=== PATIENT | female | born 1990 | race Caucasian/White ===

== ENCOUNTER 2017-03-26 20:25 | Emergency (ER) | payer BC ==
[2017-03-26 20:34] VITALS: BP 131/80
--- NOTE | 2017-03-26 20:47 | EDM.PDOC ---
ED HPI GENERAL MEDICAL PROBLEM - General Chief Complaint: Laceration Stated Complaint: RIGHT POINTER FINGER TIP CUT OFF Time Seen by Provider: 03/26/17 20:46 Source of Information: Reports: Patient History Limitations: Reports: No Limitations - History of Present Illness INITIAL COMMENTS - FREE TEXT/NARRATIVE: 26-year-old female attends the ED after suffering an acute injury to the distal ulnar aspect of her right index finger. Patient states she slipped with a very sharp knifelike cutting lettuce and suffered an avulsion injury but does involve the anterior aspect of the nail as well as the ulnar aspect of the tip of the finger. Tetanus toxoid is up to date. Injury occurred within the last hour. She is left-hand dominant. Onset: Today Onset Date: 03/26/17 Onset Time: 20:05 Duration: Minutes: Location: Reports: Upper Extremity, Right (Right distal index finger) Quality: Reports: Ache, Burning, Stabbing Severity: Moderate Improves with: Reports: None Worsens with: Reports: None Context: Reports: Trauma. 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) Right Hand Pain Score (Numeric/FACES): 6 - Related Data Allergies Allergy/AdvReac Type Severity Reaction Status Date / Time Latex, Natural Rubber Allergy Rash Verified 03/26/17 20:31 nickel Allergy Rash Verified 03/26/17 20:31 amitriptyline AdvReac Hallucinati Verified 03/26/17 20:31 ons nortriptyline [Nortriptyline] AdvReac Hallucinati Verified 03/26/17 20:31 ons nut - unspecified [nut] AdvReac Stomach Verified 03/26/17 20:31 Ache topiramate [From Topamax] AdvReac Hallucinati Verified 03/26/17 20:31 ons Home Meds: Home Meds Levothyroxine 25 mcg PO QPM 04/05/15 [History] Prenat Vit Comb.10/Iron/Fa/Dha [Vitafol-OB + DHA] 1 each PO DAILY 09/28/16 [ History] Albuterol Sulfate [Proair Hfa] 8.5 gm IH Q4HR PRN 10/28/16 [History] Acetaminophen [Tylenol] 650 mg PO Q4H PRN #30 tablet 10/30/16 [Rx] Ibuprofen [IJD: Ibuprofen] 600 mg PO Q4H PRN #30 tablet 10/30/16 [Rx] Past Medical History HEENT History: Reports: Impaired Vision Other HEENT History: Wears glasses Respiratory History: Reports: SOB Other Respiratory History: sensitivity to cold and smoke. 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 , , Other (See Below) Other OB/BYN History: Ooprectomy Musculoskeletal History: Reports: Back Pain, Chronic, Fibromyalgia, RA Neurological History: Reports: Migraines Psychiatric History: Reports: Anxiety, Depression Endocrine/Metabolic History: Reports: Hypothyroidism Hematologic History: Reports: Idiopathic Thrombocytopenia, Iron Deficiency Other Hematologic History: received iron infusions during Immunologic History: Reports: Immunosuppression Other Immunologic History: on steroids prior to admission, autoimmune disease Dermatologic History: Reports: Other (See Below) Other Dermatologic History: sensitive to multiple foods "rash" - Past Surgical History Female Surgical History: Reports: Section Social & Family History - Family History Family Medical History: Noncontributory - Tobacco Use Smoking Status *Q: Never Smoker Second Hand Smoke Exposure: No - Alcohol Use Days Per Week of Alcohol Use: 0 - Recreational Drug Use Recreational Drug Use: No Drug Use in Last 12 Months: No - Living Situation & Occupation Living situation: Reports: Occupation: Employed ED ROS GENERAL - Review of Systems Review Of Systems: See Below Constitutional: Reports: No Symptoms HEENT: Reports: No Symptoms Respiratory: Reports: No Symptoms Cardiovascular: Reports: No Symptoms Endocrine: Reports: No Symptoms GI/Abdominal: Reports: No Symptoms : Reports: No Symptoms Musculoskeletal: Reports: No Symptoms Skin: Reports: No Symptoms Neurological: Reports: No Symptoms Psychiatric: Reports: No Symptoms Hematologic/Lymphatic: Reports: Other (Intermittent problems with low platelets. Platelet count was only 50,000 before delivery and she required platelet transfusion. Last clinic and was 123,000.) Immunologic: Reports: No Symptoms ED EXAM, SKIN/RASH Exam: See Below Exam Limited By: No Limitations General Appearance: Alert, WD/WN, No Apparent Distress Extremities: Other (Examination was limited to the tip of the right index finger. Patient has suffered a avulsion injury to the tip of the finger involving the distal 20% of the fingernail. Approximately 6 mm of tissue have been avulsed circumferentially. No active bleeding.) Neurological: Alert, Oriented, CN II-XII Intact, Normal Cognition Course - Vital Signs Last Recorded V/S: Last Vital Signs Temp 36.1 C 03/26/17 20:32 Pulse 76 03/26/17 20:32 Resp 16 03/26/17 20:32 BP 131/80 03/26/17 20:32 Pulse Ox 100 03/26/17 20:32 - Radiology Interpretation Free Text/Narrative:: 26-year-old female attends the ED for assessment of a avulsion injury to the distal aspect of her right index finger. This occurred at home with an accident when she slipped with the knife. It does involve the nail with about 20% of the corner of the nail removed and 5-6 mm circumferential piece of skin which is full-thickness loss. Not enough to require skin grafting. There is no active bleeding. The wound will have to heal by primary intention. Wound was cleansed topical antibiotic placed Telfa pad and finger cot dressing for 2 days. She'll then cleansed the area daily with soap and water and apply topical antibiotic and cover with bandages to keep clean. Advised wound will take around 3 weeks to granulatie in completely. Departure - Departure Time of Disposition: 20:46 Disposition: Home, Self-Care 01 Condition: Fair Clinical Impression: Avulsion of skin of finger Qualifiers: Encounter type: initial encounter Qualified Code(s): S61.209A - Unspecified open wound of unspecified finger without damage to nail, initial encounter - Discharge Information Referrals: Mary Whitten PA [Primary Care Provider] - Forms: ED Department Discharge
== END 2017-03-26 21:10 | disposition home or self-care (01) ==
LOC: JD.ED 20:25
DX: S61.300A Unspecified open wound of right index finger with damage to nail, initial encounter (principal); F41.9 Anxiety disorder, unspecified; F32.9 Major depressive disorder, single episode, unspecified; E03.9 Hypothyroidism, unspecified; Z98.890 Other specified postprocedural states; Z79.899 Other long term (current) drug therapy; Z88.8 Allergy status to other drugs, medicaments and biological substances; Z91.040 Latex allergy status; Z91.048 Other nonmedicinal substance allergy status; W26.0XXA Contact with knife, initial encounter
CPT/HCPCS: 99282; 99283

== ENCOUNTER 2019-08-22 01:38 | Inpatient (IN) | payer BC ==
[~2019-08-22 01:38] MED LIST: Bupivacaine 0.25% 10 ML SDV ONE
[2019-08-22] MEDS ORDERED: Nalbuphine 10 MG/1 ML Vial IVPUSH PRN (02:20)
[2019-08-22] MEDS ORDERED: Sodium Chloride 0.9% 10 ML Syringe FLUSH PRN (02:20)
[2019-08-22] MEDS ORDERED: Ondansetron 4 MG/2 ML SDV IVPUSH PRN (02:20)
[2019-08-22] MEDS ORDERED: Oxytocin/Lactated Ringers 10 UNIT/1,000 ML BAG IV SCH (02:30)
[2019-08-22] MEDS ORDERED: Sodium Chloride 0.9% 500 ML ONE (05:55)
--- NOTE | 2019-08-22 08:01 | PCM.LDHP ---
L&D History of Present Illness - General Date of Service: 08/22/19 Admit Problem/Dx: Patient Status Order with Admit Dx/Problem 08/22/19 05:00 Patient Status [ADT] Routine Admission Diagnosis/Problem Admission Diagnosis/Problem 08/22/19 07:44 Eva is a 29-year-old 5 para 2021 white female who is admitted for medical induction of labor for diagnosis of thrombocytopenia. Patient has had moderately decreased platelets in the range of 90-100,000. Because of the anesthesia requirements 100,000 platelets prior to any epidural or spinal analgesia decision was made to induce labor after infusion of platelets. Source of Information: Patient History Limitations: Reports: No Limitations - History of Present Illness Introduction:: Eva is a 29-year-old 5 para 2021 white female who is admitted for medical induction of labor for diagnosis of thrombocytopenia. Patient has had moderately decreased platelets in the range of 90-100,000. Because of the anesthesia requirements 100,000 platelets prior to any epidural or spinal analgesia decision was made to induce labor after infusion of platelets.She has had 4 days of prednisone on 20 mg per day in an attempt to increase platelet count. This has failed to increase platelets significantly. The procedure of platelet transfusion followed by induction of labor especially in light of her being a trial of labor after section candidate for vaginal after section, its risks, benefits and alternatives including repeat section and all discussed in detail patient. Precautionary efforts including preoperative labs, continuous monitoring, signing of consents for and vaginal after section are all discussed with patient and will be implemented. 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 with this delivery also. She has had 1 tubal and 1 miscarriage also. Her menarche was at 11 years of age. Cycles every 28 days. Her STEFANIE of 08/28/2019 is determined by her certain LMP of 11/21/2018. This supported by 2 ultrasounds done at 7 weeks and again at 19 weeks. Her previous obstetric history includes the followin. Female born 08/26/2011 at 38 weeks gestational age6 lbs. [facility] [place] Child's name is Jigar. 2. Ectopic 09/26/2011 at 8 weeks gestational age 3. Spontaneous miscarriage 1016 weeks gestational age. 4. Male born 10/29/2017. 38 weeks and 6 days. 7 lbs. 13 oz.-Vaginal after sectionepidural used. Patient had gestational thrombocytopenia with that , and platelet transfusion prior to induction of labor with that delivery. course: Patient was seen early in the at approximately 7 weeks gestational age. She has had appropriate fundal height growth. Vital signs and stable throughout the course. Her weight is increased from 183.6 pounds to 205.6 pounds. Patient is group B strep negative. She was identified with thrombocytopenia which is mild at first visit but has slowly become more significant throughout the . Her blood count has been followed on a regular basis. She has had some history of anxiety. Also history of asthma and rheumatoid arthritis. She declined genetic testing with this . She has been on sertraline 50 mg per day during the course of the . She has a right ovarian dermoid cyst which on last evaluation is 4.1 cm in size. She has a history of fibromyalgia. She is hypothyroid and is on thyroid replacement levothyroxine. Anemia during and has been on iron replacement. Laboratory testing and : Blood is A+ with a negative and by screen. Hemoglobin at first visit was 11.4 g/dL and platelets are 131,000. She is rubella immune. Urine culture was negative. Hepatitis B surface antigen and HIV assays were both negative. TSH on 02/08/2019 was normal at 1.217 mU/L. Second trimester laboratory testing showed a hemoglobin of 11.2 g/dL which time she was started on iron replacement therapy. Late was were 134,000. Diabetic screen was 131. Her 3 hour glucose tolerance test was normal with values of 82 mg/dL fasting, 116 mg/dL 1 hour, 127 mg/dL at 2 hours and 109 g/dL at 3 hours. Repeat laboratory testing on 06/01/2019 showed a hemoglobin of 11.8 g/dL and platelets of 115,000. At that time. RPR was nonreactive. Group B strep screen is negative. Platelet count as of last week was 90,000 having been 93,000 the week before. Patient has had no bleeding abnormalities during the course of . Allergies: 1. Nortriptyline 2. Topamax 3. Amitriptyline 4. Adhesive tape 5. Latex Medications: 1. vitamins daily 2. Patient has been on sertraline during the course of at 50 mg per day 3. Ventolin inhaler when necessary as rescue. 4. Levothyroxine sodium 75 g daily 5. Iron inform ferrous sulfate 325 mg per day Past medical history: 1. Mucoid arthritis 2. History of migraine headaches 3. History of anxiety and depression on meds during this 4. Hypothyroidism on replacement meds 5. History of a station of thrombocytopenia 6. Dermoid cyst right ovary4.1 cm in size. 7 Multiple allergies Past surgical history: 1. section 2. Tonsillectomy 2006 3. Laparoscopy 21 for ectopic and 1 done for diagnostic reasons. Family history: Father with type 2 diabetes. Mother is alive with osteoarthritis and asthma. Father also has osteoarthritis and hypertension. One brother is alive with asthma history. One sister with lupus. Other autoimmune problems also noted in the sister. No bleeding, clotting, platelet abnormalities or problems noted in the family otherwise. Social history: Patient is . 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 She [facility]. She is a high school graduate. Her is Jimmy Gr. She does not use any significant loss of alcohol, drugs or tobacco. Review of systems: In general patient has no complaints. Specifically has no bleeding abnormalities noted. Skin: Negative Lungs: No infectious symptoms or shortness of breath Cardiovascular: No chest pain or exercise intolerance Breasts: No lumps, changes in size, pain, dimpling, discharge or axillary or supraclavicular concerns. Dissociated are noted GI: Negative : Changes associated with Musculoskeletal: Negative Neurological: Negative In general the patient is well-developed, well-nourished, pleasant female of stated age in no acute distress. Patient is anxious concerning plans for induction today. Skin is warm dry without lesions. HEENT, neck and back within normal limits. Lungs are clear with good breath sounds in all lung zhao. Cardiovascular exam shows regular and rhythm without murmurs. Breast exam is deferred having been done at first visit and found to be normal is not repeated at this time. Abdomen is gravid with fundal height on last evaluation clinic at 39 cm. Baby in vertex presentation.. Genital per digital exam on last evaluation clinic 2+ centimeters, 50% effaced, soft, posterior, cephalic presentation.. Extremities and neurological exam are grossly within normal limits. - Related Data Allergies/Adverse Reactions: Allergies Allergy/AdvReac Type Severity Reaction Status Date / Time Latex, Natural Rubber Allergy Rash Verified 08/22/19 08:02 nickel Allergy Rash Verified 08/22/19 08:02 amitriptyline AdvReac Hallucinati Verified 08/22/19 08:02 ons nortriptyline [Nortriptyline] AdvReac Hallucinati Verified 08/22/19 08:02 ons nut - unspecified [nut] AdvReac Stomach Verified 08/22/19 08:02 Ache topiramate [From Topamax] AdvReac Hallucinati Verified 08/22/19 08:02 ons tape Allergy Itching Uncoded 08/22/19 08:02 Home Medications: Home Meds Levothyroxine 75 mcg PO DAILY 04/05/15 [History] Vit 10/Iron/Folic/Dha [Vitafol-OB + DHA] 1 each PO DAILY 09/28/16 [ History] Albuterol Sulfate [Proair Hfa] 8.5 gm IH Q4HR PRN 10/28/16 [History] Ferrous Sulfate [Iron] 325 mg PO TID 08/22/19 [History] Past Medical History HEENT History: Reports: Impaired Vision Other HEENT History: Wears glasses Respiratory History: Reports: SOB Other Respiratory History: sensitivity to cold and smoke. 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 , , Other (See Below) Other OB/BYN History: Ooprectomy Musculoskeletal History: Reports: Back Pain, Chronic, Fibromyalgia, RA Neurological History: Reports: Migraines Psychiatric History: Reports: Anxiety, Depression Endocrine/Metabolic History: Reports: Hypothyroidism Hematologic History: Reports: Idiopathic Thrombocytopenia, Iron Deficiency Other Hematologic History: received iron infusions during Immunologic History: Reports: Immunosuppression Other Immunologic History: on steroids prior to admission, autoimmune disease Dermatologic History: Reports: Other (See Below) Other Dermatologic History: sensitive to multiple foods "rash" - Past Surgical History Female Surgical History: Reports: Section Social & Family History - Family History Family Medical History: Noncontributory - Living Situation & Occupation Living situation: Reports: Occupation: Employed H&P Review of Systems - Review of Systems: Review Of Systems: See Below L&D Exam - Exam Exam: See Below - Patient Data Lab Results Last 24 hrs: Laboratory Results - last 24 hr 08/22/19 08/22/19 Range/Units 05:34 05:34 WBC 6.10 (3.98-10.04) K/mm3 RBC 4.09 (3.98-5.22) M/mm3 Hgb 12.5 (11.2-15.7) gm/dl Hct 37.1 (34.1-44.9) % MCV 90.7 (79.4-94.8) fl MCH 30.6 (25.6-32.2) pg MCHC 33.7 (32.2-35.5) g/dl RDW Std Deviation 43.2 (36.4-46.3) fL Plt Count 93 L (182-369) K/mm3 MPV 12.1 (9.4-12.3) fl Neut % (Auto) 64.7 (34.0-71.1) % Lymph % (Auto) 25.6 (19.3-51.7) % Pitt % (Auto) 8.7 (4.7-12.5) % Eos % (Auto) 0.5 L (0.7-5.8) Baso % (Auto) 0.2 (0.1-1.2) % Neut # (Auto) 3.95 (1.56-6.13) K/mm3 Lymph # (Auto) 1.56 (1.18-3.74) K/mm3 Pitt # (Auto) 0.53 H (0.24-0.36) K/mm3 Eos # (Auto) 0.03 L (0.04-0.36) K/mm3 Baso # (Auto) 0.01 (0.01-0.08) K/mm3 Manual Slide Review Abnormal smear Sodium 140 (136-145) mEq/L Potassium 3.5 (3.5-5.1) mEq/L Chloride 105 (98-107) mEq/L Carbon Dioxide 24 (21-32) mEq/L Anion Gap 14.5 (5-15) BUN 10 (7-18) mg/dL Creatinine 0.7 (0.55-1.02) mg/dL Est Cr Clr Drug Dosing TNP Estimated GFR (MDRD) > 60 (>60) mL/min BUN/Creatinine Ratio 14.3 (14-18) Glucose 109 H (74-106) mg/dL Calcium 8.6 (8.5-10.1) mg/dL Total Bilirubin 0.2 (0.2-1.0) mg/dL AST 13 L (15-37) U/L ALT 11 L (14-59) U/L Alkaline Phosphatase 101 (46-116) U/L Total Protein 6.3 L (6.4-8.2) g/dl Albumin 2.6 L (3.4-5.0) g/dl Globulin 3.7 gm/dL Albumin/Globulin Ratio 0.7 L (1-2) Result Diagrams: 08/22/19 10:00 08/22/19 05:34 Problem List Initiated/Reviewed/Updated: Yes Orders Last 24hrs: Active Orders 24 hr Category Date Time Status Patient Status [ADT] Routine ADT 08/22/19 05:00 Active Activity as Tolerated [RC] PFP Care 08/22/19 02:20 Active Communication Order [RC] ASDIRECTED Care 08/22/19 02:20 Active Heart Tones [RC] ASDIRECTED Care 08/22/19 02:21 Active Non Stress Test [RC] PER UNIT ROUTINE Care 08/22/19 05:00 Active Notify Provider [RC] PFP Care 08/22/19 02:20 Active Notify Provider [RC] PRN Care 08/22/19 02:20 Active Peripheral IV Care [RC] . DIRECTED Care 08/22/19 02:21 Active Pump Management, Intrathecal [RC] ASDIRECTED Care 08/22/19 05:00 Active Vital Signs [RC] PER UNIT ROUTINE Care 08/22/19 02:20 Active Regular Diet [DIET] Diet 08/22/19 Breakfast Active CORTISOL [REF] Routine Lab 08/22/19 05:34 Received RAPID PLASMA REAGIN,RPR [CHEM] Routine Lab 08/22/19 05:34 Received Lactated Ringers [Ringers, Lactated] 1,000 ml Med 08/22/19 02:30 Active IV ASDIRECTED Nalbuphine [Nubain] Med 08/22/19 02:20 Active 10 mg IVPUSH Q2H PRN Ondansetron [Zofran] Med 08/22/19 02:20 Active 4 mg IVPUSH Q4H PRN Oxytocin/Lactated Ringers [Pitocin in LR 10 Units/1,000 Med 08/22/19 02:30 Active ML] 10 unit in 1,000 ml IV TITRATE Sodium Chloride 0.9% [Saline Flush] Med 08/22/19 02:20 Active 10 ml FLUSH ASDIRECTED PRN Electronic Heart Tones Ext w TOCO [WOMSER] Oth 08/22/19 02:20 Ordered Routine Electronic Heart Tones Internal [WOMSER] Per Unit Oth 08/22/19 02:20 Ordered Routine Peripheral IV Insertion Adult [OM.PC] Routine Oth 08/22/19 02:20 Ordered Resuscitation Status Routine Resus Stat 08/22/19 02:20 Ordered Medication Orders Lactated Ringer's (Ringers, Lactated) 1,000 mls @ 100 mls/hr IV ASDIRECTED SPIKE Oxytocin/Lactated Ringer's (Pitocin In Lr 10 Units/1,000 Ml) 10 unit in 1,000 mls @ 12 mls/hr IV TITRATE SPIKE; Protocol Nalbuphine HCl (Nubain) 10 mg IVPUSH Q2H PRN PRN Reason: Pain Ondansetron HCl (Zofran) 4 mg IVPUSH Q4H PRN PRN Reason: Nausea/Vomiting Sodium Chloride (Saline Flush) 10 ml FLUSH ASDIRECTED PRN PRN Reason: Keep Vein Open Assessment/Plan Comment:: 1. 39-1/7 week intrauterine , history of moderate thrombocytopenia with platelet count at 90,000. Admitted for medical induction of labor. 2.Group B strep screen negative. 3. History of with first with successful with second . 4. History of gestational thrombocytopenia with last treated with platelet transfusion and induction of labor with successful outcome 5. Dermoid cyst right ovary4.1 cm in diameter 6. Patient plans to breast-feed. 7. Patient desire an epidural in labor 8. History of anxiety and depression in 9. History of asthmahas been mild during 10. History of anemia in on iron replacement therapy with good results. 11. Hypothyroidism on replacement. Plan: 1. Precautionary orders given for protocol including consents for C- section and , labs, continuous monitoring, IV access, informing anesthesia and surgery that candidate is in labor and delivery. 2. We will transfuse 2 units of platelets in an attempt to bring platelet count above 100,000 so patient can have an for analgesia in labor. Will recheck platelets after infusion 3. RPR per protocol 4. We'll obtain cortisols level as patient has been on prednisone for the last 4 days. Below the threshold of adequacy will support the labor with IV hydrocortisone as indicated. 5. Continuous monitoring 6. Pitocin/artificial rupture membranes induction. 7. Will manage right ovarian dermoid cyst after delivery 8. Continue levothyroxine per patient's present dosage.
[2019-08-22] MEDS ORDERED: diphenhydrAMINE 50 MG/ML SDV IVPUSH PRN (10:59)
[2019-08-22] MEDS ORDERED: ePHEDrine 50 MG/ML SDV IVPUSH PRN (10:59)
[2019-08-22] MEDS ORDERED: fentaNYL/Bupivacaine/NS 2 MCG-0.125% 250 ML EPIDUR PRN (10:59)
[2019-08-22] MEDS ORDERED: fentaNYL 100 MCG/2 ML SDV EPIDUR PRN (10:59)
[2019-08-22] MEDS ORDERED: Albuterol 6.7 GM Inhaler INH PRN (12:59)
[2019-08-22] MEDS ORDERED: Hydrocortisone Sodium Succinate 100 MG/2 ML SDV IVPUSH ONE (13:15)
[2019-08-22] MEDS ORDERED: Acetaminophen 325 MG Tab PO PRN (13:24)
[2019-08-22] MEDS: Lactated Ringers 1,000 ML IV SCH ×3 (13:24→15:27)
--- NOTE | 2019-08-22 14:41 | PCM.PREANE ---
Preanesthetic Assessment - Procedure Proposed Procedure: Epidural - Anesthesia/Transfusion/Family Hx Anesthesia History: Prior Anesthesia Without Reaction Family History of Anesthesia Reaction: No Transfusion History: Prior Transfusion Without Reaction - Review of Systems General: No Symptoms Pulmonary: No Symptoms Cardiovascular: No Symptoms Gastrointestinal: Abdominal Pain (labor) Neurological: No Symptoms Other: Reports: Thyroid Problems (hypothyroid), Anxiety - Physical Assessment Height: 1.65 m Weight: 93.44 kg ASA Class: 2 Mental Status: Alert & Oriented x3 Airway Class: Mallampati = 1 Dentition: Reports: Normal Dentition Thyro-Mental Finger Breadths: 3 Mouth Opening Finger Breadths: 3 ROM/Head Extension: Full Lungs: Clear to Auscultation, Normal Respiratory Effort Cardiovascular: Regular Rate, Regular Rhythm - Lab Values: Laboratory Last Values WBC 5.92 K/mm3 (3.98-10.04) 08/22/19 10:00 RBC 3.80 M/mm3 (3.98-5.22) L 08/22/19 10:00 Hgb 11.6 gm/dl (11.2-15.7) 08/22/19 10:00 Hct 34.6 % (34.1-44.9) 08/22/19 10:00 MCV 91.1 fl (79.4-94.8) 08/22/19 10:00 MCH 30.5 pg (25.6-32.2) 08/22/19 10:00 MCHC 33.5 g/dl (32.2-35.5) 08/22/19 10:00 RDW Std Deviation 43.6 fL (36.4-46.3) 08/22/19 10:00 Plt Count 110 K/mm3 (182-369) L 08/22/19 10:00 MPV 10.8 fl (9.4-12.3) 08/22/19 10:00 Neut % (Auto) 71.9 % (34.0-71.1) H 08/22/19 10:00 Lymph % (Auto) 19.4 % (19.3-51.7) 08/22/19 10:00 Boyle % (Auto) 7.9 % (4.7-12.5) 08/22/19 10:00 Eos % (Auto) 0.3 (0.7-5.8) L 08/22/19 10:00 Baso % (Auto) 0.3 % (0.1-1.2) 08/22/19 10:00 Neut # (Auto) 4.25 K/mm3 (1.56-6.13) 08/22/19 10:00 Lymph # (Auto) 1.15 K/mm3 (1.18-3.74) L 08/22/19 10:00 Boyle # (Auto) 0.47 K/mm3 (0.24-0.36) H 08/22/19 10:00 Eos # (Auto) 0.02 K/mm3 (0.04-0.36) L 08/22/19 10:00 Baso # (Auto) 0.02 K/mm3 (0.01-0.08) 08/22/19 10:00 Manual Slide Review Abnormal smear 08/22/19 05:34 Sodium 140 mEq/L (136-145) 08/22/19 05:34 Potassium 3.5 mEq/L (3.5-5.1) 08/22/19 05:34 Chloride 105 mEq/L (98-107) 08/22/19 05:34 Carbon Dioxide 24 mEq/L (21-32) 08/22/19 05:34 Anion Gap 14.5 (5-15) 08/22/19 05:34 BUN 10 mg/dL (7-18) 08/22/19 05:34 Creatinine 0.7 mg/dL (0.55-1.02) 08/22/19 05:34 Est Cr Clr Drug Dosing TNP 08/22/19 05:34 Estimated GFR (MDRD) > 60 mL/min (>60) 08/22/19 05:34 BUN/Creatinine Ratio 14.3 (14-18) 08/22/19 05:34 Glucose 109 mg/dL (74-106) H 08/22/19 05:34 Calcium 8.6 mg/dL (8.5-10.1) 08/22/19 05:34 Total Bilirubin 0.2 mg/dL (0.2-1.0) 08/22/19 05:34 AST 13 U/L (15-37) L 08/22/19 05:34 ALT 11 U/L (14-59) L 08/22/19 05:34 Alkaline Phosphatase 101 U/L (46-116) 08/22/19 05:34 Total Protein 6.3 g/dl (6.4-8.2) L 08/22/19 05:34 Albumin 2.6 g/dl (3.4-5.0) L 08/22/19 05:34 Globulin 3.7 gm/dL 08/22/19 05:34 Albumin/Globulin Ratio 0.7 (1-2) L 08/22/19 05:34 Blood Type A POSITIVE 08/22/19 05:34 Gel Antibody Screen Negative 08/22/19 05:34 - Allergies Allergies/Adverse Reactions: Allergies Allergy/AdvReac Type Severity Reaction Status Date / Time Latex, Natural Rubber Allergy Rash Verified 08/22/19 08:02 nickel Allergy Rash Verified 08/22/19 08:02 amitriptyline AdvReac Hallucinati Verified 08/22/19 08:02 ons nortriptyline [Nortriptyline] AdvReac Hallucinati Verified 08/22/19 08:02 ons nut - unspecified [nut] AdvReac Stomach Verified 08/22/19 08:02 Ache topiramate [From Topamax] AdvReac Hallucinati Verified 08/22/19 08:02 ons tape Allergy Itching Uncoded 08/22/19 08:02 - Anesthesia Plan Pre-Op Medication Ordered: None - Acknowledgements Anesthesia Type Planned: Epidural Pt an Appropriate Candidate for the Planned Anesthesia: Yes Alternatives and Risks of Anesthesia Discussed w Pt/Guardian: Yes Pt/Guardian Understands and Agrees with Anesthesia Plan: Yes PreAnesthesia Questionnaire HEENT History: Reports: Impaired Vision Other HEENT History: Wears glasses Respiratory History: Reports: SOB Other Respiratory History: sensitivity to cold and smoke. uses inhaler PRN Gastrointestinal History: Reports: GERD, Irritable Bowel Syndrome DOUBLE [employer] GR[employer]ER History: Reports: Ectopic , , Other (See Below) Other OB/BYN History: Ooprectomy Musculoskeletal History: Reports: Back Pain, Chronic, Fibromyalgia, RA Neurological History: Reports: Migraines Psychiatric History: Reports: Anxiety, Depression Endocrine/Metabolic History: Reports: Hypothyroidism Hematologic History: Reports: Idiopathic Thrombocytopenia, Iron Deficiency Other Hematologic History: received iron infusions during Immunologic History: Reports: Immunosuppression Other Immunologic History: on steroids prior to admission, autoimmune disease Dermatologic History: Reports: Other (See Below) Other Dermatologic History: sensitive to multiple foods "rash" - Past Surgical History Female Surgical History: Reports: Section - SUBSTANCE USE Smoking Status *Q: Never Smoker Recreational Drug Use History: No - HOME MEDS Home Medications: Home Meds Levothyroxine 25 mcg PO QPM 04/05/15 [History] Vit 10/Iron/Folic/Dha [Vitafol-OB + DHA] 1 each PO DAILY 09/28/16 [ History] Albuterol Sulfate [Proair Hfa] 8.5 gm IH Q4HR PRN 10/28/16 [History] Ferrous Sulfate [Iron] 325 mg PO TID 08/22/19 [History] - CURRENT (IN HOUSE) MEDS Current Meds: Current Medications Acetaminophen (Tylenol) 650 mg PO Q4H PRN PRN Reason: Headache Last Admin: 08/22/19 13:46 Dose: 650 mg Albuterol (Proventil Hfa) 0 gm INH Q4H PRN PRN Reason: Shortness of Breath Diphenhydramine HCl (Benadryl) 25 mg IVPUSH Q6H PRN PRN Reason: pruritis Ephedrine Sulfate (Ephedrine Sulfate) 5 mg IVPUSH ASDIRECTED PRN PRN Reason: Hypotension Fentanyl (Sublimaze) 100 mcg EPIDUR Q3H PRN PRN Reason: Pain Last Admin: 08/22/19 14:06 Dose: 100 mcg Fentanyl/Bupivacaine HCl (Fentanyl/Bupivacaine/Ns 2 Mcg-0.125% 250 Ml) 250 ml EPIDUR CONTINUOUS PRN PRN Reason: Pain Last Admin: 08/22/19 14:06 Dose: 250 ml Ferrous Sulfate (Ferrous Sulfate) 324 mg PO TID SPIKE Lactated Ringer's (Ringers, Lactated) 1,000 mls @ 100 mls/hr IV ASDIRECTED SPIKE Last Admin: 08/22/19 14:04 Dose: 999 mls/hr Oxytocin/Lactated Ringer's (Pitocin In Lr 10 Units/1,000 Ml) 10 unit in 1,000 mls @ 12 mls/hr IV TITRATE SPIKE; Protocol Last Titration: 08/22/19 14:28 Dose: 10 munits/min, 60 mls/hr Levothyroxine Sodium (Levothyroxine) 25 mcg PO QPM SPIKE Nalbuphine HCl (Nubain) 10 mg IVPUSH Q2H PRN PRN Reason: Pain Ondansetron HCl (Zofran) 4 mg IVPUSH Q4H PRN PRN Reason: Nausea/Vomiting Prenat Multivit/[place]/Iron/Folic Ac ( Plus Iron) 1 each PO DAILY SPIKE Sodium Chloride (Saline Flush) 10 ml FLUSH ASDIRECTED PRN PRN Reason: Keep Vein Open Discontinued Medications Hydrocortisone Sodium Succinate (Solu-Cortef) 100 mg IVPUSH ONETIME ONE Stop: 08/22/19 13:16 Last Admin: 08/22/19 13:55 Dose: 100 mg Sodium Chloride (Normal Saline) Confirm Administered Dose 500 mls @ as directed .ROUTE .STK-MED ONE Stop: 08/22/19 05:56
[2019-08-22] MEDS: Ferrous Sulfate 324 MG Tab.EC PO SCH (16:36)
[2019-08-22] MEDS ORDERED: Levothyroxine 25 MCG Tab PO SCH (18:00)
[2019-08-22] MEDS ORDERED: Oxytocin/Lactated Ringers 10 UNIT/1,000 ML BAG IV ONE (20:46)
--- NOTE | 2019-08-22 22:40 | PCM.SN ---
- Free Text/Narrative Note: Delivery note: Eva is a 29-year-old 5 para 2021 white female who is admitted for medical induction of labor for diagnosis of thrombocytopenia. Patient has had moderately decreased platelets in the range of 90-100,000. Eva is a 29-year- old 5 now para 3023 white female who progressed in labor after initial Pitocin induction and artificial rupture membranes augmentation. She became completely dilated at approximately 2130 hrs. It should be noted she had epidural analgesia for pain control in labor and delivery. She pushed for approximately one half hour and at 2201 hrs. on 08/22/2019 she viable, hernandez , female infant with a weight of 3510 g (7 pounds 11.8 ounces, a length of 20.5 inches and Apgars of 8 and 9. Baby delivered in an occiput anterior position. Baby was placed on mom's abdomen. Nose and mouth were bulb suctioned. The Pitocin was increased to 500 mL per hour to facilitate increase in uterine tone and decrease likelihood of bleeding. Cord was obtained. Attempt was made to extract blood to do a platelet count on cord blood. Vocal cord had 3 vessels. Placenta delivered in a [place] presentation, appeared intact and complete and was discarded per patient desire. A segment of cord was reserved until blood was drawn for a platelet count. Patient had 2 lacerations involving bilateral labia and a posterior superficial perineal laceration. It is grade 1 in nature. All lacerations were closed with interrupted sutures of 3-0 Monocryl. Epidural was used for anesthesia. Patient tolerated the procedure well. Estimated blood loss was 100 mL. Patient plans to breast-feed. Condition: Good.
[2019-08-23] MEDS ORDERED: Witch Hazel Medicated Pads 40/Jar TOP PRN (00:18)
[2019-08-23] MEDS ORDERED: Docusate Sodium 100 MG Cap PO PRN (00:18)
[2019-08-23] MEDS ORDERED: Acetaminophen 325 MG Tab PO PRN (00:18)
[2019-08-23] MEDS: Levothyroxine 75 MCG Tab PO SCH ×2 (04:51→05:46)
[2019-08-23] MEDS: Ferrous Sulfate 324 MG Tab.EC PO SCH (05:46)
[2019-08-23] MEDS: Acetaminophen/oxyCODONE 325-5 MG Tab PO PRN ×4 (07:22→21:20)
[2019-08-23] MEDS ORDERED: Prenatal Multivitamin with Calcium/Folic Acid/Iron Tab PO SCH (09:00)
[2019-08-23] MEDS: Prenatal Multivitamin with Calcium/Folic Acid/Iron Tab PO SCH (09:06)
[2019-08-23] MEDS: FLUoxetine 20 MG Cap PO SCH (09:06)
--- NOTE | 2019-08-23 09:21 | PCM48HPAN ---
Post Anesthesia Note - EVALUATION WITHIN 48HRS OF ANESTHETIC Vital Signs in Normal Range: Yes Patient Participated in Evaluation: Yes Respiratory Function Stable: Yes Airway Patent: Yes Cardiovascular Function Stable: Yes Hydration Status Stable: Yes Pain Control Satisfactory: Yes Nausea and Vomiting Control Satisfactory: Yes Mental Status Recovered: Yes
[2019-08-23] MEDS ORDERED: Hydrocortisone Sodium Succinate 100 MG/2 ML SDV IVPUSH SCH (12:00)
--- NOTE | 2019-08-23 12:23 | PCM.SN ---
<Valerie Rodriguez - Last Filed: 08/24/19 08:29> - Free Text/Narrative Note: Eva is a 29yoF, (1 ectopic, 1 miscarriage), STEFANIE 08/28/2019, EGA 39 , who presented yesterday for induction of labor due to thrombocytopenia. She says she is a little sore today and report mild vaginal bleeding. She denies SOB , chest pain, calf pain or abdominal pain. She denies unusual bleeding or bruising. She has been up walking around. Eva says that she is able to move and feel her legs normally, she does not believe there are residual effects of the epidural but is sore in her back where the epidural was placed. She is interested in breast feeding but has not started yet, she would like to restart medication for anxiety prior to and will follow up in clinic for this. Eva is resting comfortably in a chair. Lungs are clear to auscultation, heart regular rate and rhythm. No abdominal tenderness to palpation. Condition: good Plan: 1. recheck CBC 2. continue prednisone and levothyroxine 3. support and follow up about history of anxiety 4. plan to discharge tomorrow <Chema Grey - Last Filed: 08/25/19 14:13> - Free Text/Narrative Note: I've read and agree with the documented note.
[2019-08-23] MEDS: predniSONE 20 MG Tab PO SCH (14:31)
[2019-08-23] MEDS ORDERED: Polyethylene Glycol 3350 Powder 17 GM Packet PO ONE (21:19)
[2019-08-24] MEDS: Levothyroxine 75 MCG Tab PO SCH (05:11)
[2019-08-24] MEDS: Acetaminophen/oxyCODONE 325-5 MG Tab PO PRN ×2 (05:11→11:15)
--- NOTE | 2019-08-24 08:18 | PCM.DCSUM1 ---
Discharge Summary - Hospital Course Free Text/Narrative:: [facility] Provider Simple Note Patient Name: ALISE REYES Date of : 88 Patient Status: Inpatient Attending Provider: Chema Grey Date: 08/22/19 22:36 Initialization Date: 08/22/19 22:36 - Free Text/Narrative Note: Delivery note: Alise is a 29-year-old 5 para 2022 white female who is admitted for medical induction of labor for diagnosis of thrombocytopenia. Patient has had moderately decreased platelets in the range of 90-100,000. Alise is a 29-year- old 5 now para 3023 white female who progressed in labor after initial Pitocin induction and artificial rupture membranes augmentation. She became completely dilated at approximately 2130 hrs. It should be noted she had epidural analgesia for pain control in labor and delivery. She pushed for approximately one half hour and at 2201 hrs. on 08/22/2019 she viable, hernandez , female infant with a weight of 3510 g (7 pounds 11.8 ounces, a length of 20.5 inches and Apgars of 8 and 9. Baby delivered in an occiput anterior position. Baby was placed on mom's abdomen. Nose and mouth were bulb suctioned. The Pitocin was increased to 500 mL per hour to facilitate increase in uterine tone and decrease likelihood of bleeding. Cord was obtained. Attempt was made to extract blood to do a platelet count on cord blood. Vocal cord had 3 vessels. Placenta delivered in a [place] presentation, appeared intact and complete and was discarded per patient desire. A segment of cord was reserved until blood was drawn for a platelet count. Patient had 2 lacerations involving bilateral labia and a posterior superficial perineal laceration. It is grade 1 in nature. All lacerations were closed with interrupted sutures of 3-0 Monocryl. Epidural was used for anesthesia. Patient tolerated the procedure well. Estimated blood loss was 100 mL. Patient plans to breast-feed. Condition: Good. HPI Initial Comments: [facility] Provider Simple Note Patient Name: ALISE REYES Date of : 88 Patient Status: Inpatient Attending Provider: Chema Grey F Date: 08/22/19 22:36 Initialization Date: 08/22/19 22:36 - Free Text/Narrative Note: Delivery note: Alise is a 29-year-old 5 para 2022 white female who is admitted for medical induction of labor for diagnosis of thrombocytopenia. Patient has had moderately decreased platelets in the range of 90-100,000. Alise is a 29-year- old 5 now para 3023 white female who progressed in labor after initial Pitocin induction and artificial rupture membranes augmentation. She became completely dilated at approximately 2130 hrs. It should be noted she had epidural analgesia for pain control in labor and delivery. She pushed for approximately one half hour and at 2201 hrs. on 08/22/2019 she viable, hernandez , female with a weight of 3510 g (7 pounds 11.8 ounces, a length of 20.5 inches and Apgars of 8 and 9. Baby delivered in an occiput anterior position. Baby was placed on mom's abdomen. Nose and mouth were bulb suctioned. The Pitocin was increased to 500 mL per hour to facilitate increase in uterine tone and decrease likelihood of bleeding. Cord was obtained. Attempt was made to extract blood to do a platelet count on cord blood. Vocal cord had 3 vessels. Placenta delivered in a [place] presentation, appeared intact and complete and was discarded per patient desire. A segment of cord was reserved until blood was drawn for a platelet count. Patient had 2 lacerations involving bilateral labia and a posterior superficial perineal laceration. It is grade 1 in nature. All lacerations were closed with interrupted sutures of 3-0 Monocryl. Epidural was used for anesthesia. Patient tolerated the procedure well. Estimated blood loss was 100 mL. Patient plans to breast-feed. Condition: Good. Brief History: [facility] . Provider Simple Note. [id number] Date of : Patient Status: Inpatient. Attending Provider: Chema Grey FAccount Number : [id number]. Date: 08/22/19 22:36Initialization Date: 08/22/19 22:36. - Free Text/Narrative. Note: Delivery note: Alise is a 29-year-old 5 para 2021 white female who is admitted for medical induction of labor for diagnosis of thrombocytopenia. Patient has had moderately decreased platelets in the range of 90-100,000. Alise is a 29-year-old 5 now para 3023 white female who progressed in labor after initial Pitocin induction and artificial rupture membranes augmentation. She became completely dilated at approximately 2130 hrs. It should be noted she had epidural analgesia for pain control in labor and delivery. She pushed for approximately one half hour and at 2201 hrs. on 08/22/2019 she viable, hernandez, female infant with a weight of 3510 g (7 pounds 11.8 ounces, a length of 20.5 inches and Apgars of 8 and 9. Baby delivered in an occiput anterior position. Baby was placed on mom's abdomen. Nose and mouth were bulb suctioned. The Pitocin was increased to 500 mL per hour to facilitate increase in uterine tone and decrease likelihood of bleeding. Cord was obtained. Attempt was made to extract blood to do a platelet count on cord blood. Vocal cord had 3 vessels. Placenta delivered in a [place] presentation, appeared intact and complete and was discarded per patient desire. A segment of cord was reserved until blood was drawn for a platelet count. Patient had 2 lacerations involving bilateral labia and a posterior superficial perineal laceration. It is grade 1 in nature. All lacerations were closed with interrupted sutures of 3-0 Monocryl. Epidural was used for anesthesia. Patient tolerated the procedure well. Estimated blood loss was 100 mL. Patient plans to breast-feed. Condition: Good. Diagnosis: Stroke: No - Discharge Data Discharge Date: 08/24/19 Discharge Disposition: Home, Self-Care 01 Condition: Good - Referral to Home Health Primary Care Physician: Chema Grey MD - Discharge Diagnosis/Problem(s) (1) 39 weeks gestation of SNOMED Code(s): 46908156 ICD Code: Z3A.39 - 39 WEEKS GESTATION OF Status: Acute Current Visit: Yes (2) History of delivery SNOMED Code(s): 685823834 ICD Code: Z98.891 - HISTORY OF UTERINE SCAR FROM PREVIOUS SURGERY Status: Acute Current Visit: Yes (3) (vaginal after ) SNOMED Code(s): 891136201 ICD Code: O34.219 - MATERNAL CARE FOR UNSP TYPE SCAR FROM PREVIOUS DEL Status: Acute Current Visit: Yes (4) First degree perineal laceration during delivery SNOMED Code(s): 144332162 ICD Code: O70.0 - FIRST DEGREE PERINEAL LACERATION DURING DELIVERY Status: Acute Current Visit: Yes (5) Thrombocytopenia affecting SNOMED Code(s): 234680391 ICD Code: O99.119 - OTH DIS OF BLD/BLD-FORM ORG/IMMUN MECHNSM COMP PREG,UNSP TRI; D69.6 - THROMBOCYTOPENIA, UNSPECIFIED Status: Acute Current Visit: Yes (6) depression SNOMED Code(s): 59604723 ICD Code: O99.345 - OTHER MENTAL DISORDERS COMPLICATING THE PUERPERIUM; F53.0 - DEPRESSION Status: Acute Current Visit: Yes - Patient Summary/Data Complications: None Consults: None Hospital Course: Uneventful - Patient Instructions Diet: Usual Diet as Tolerated Driving: Do Not Drive (x48 hrs) Showering/Bathing: May Shower Notify Provider of: Fever, Increased Pain, Swelling and Redness, Drainage, Nausea and/or Vomiting - Discharge Plan *PRESCRIPTION DRUG MONITORING PROGRAM REVIEWED*: Not Applicable *COPY OF PRESCRIPTION DRUG MONITORING REPORT IN PATIENT TARUN: Not Applicable Prescriptions/Med Rec: FLUoxetine HCl [Fluoxetine HCl] 40 mg PO DAILY #30 capsule predniSONE 5 mg PO DAILY #7 tablet Home Medications: Home Meds Levothyroxine 75 mcg PO DAILY 04/05/15 [History] Vit 10/Iron/Folic/Dha [Vitafol-OB + DHA] 1 each PO DAILY 09/28/16 [ History] Albuterol Sulfate [Proair Hfa] 8.5 gm IH Q4HR PRN 10/28/16 [History] Ferrous Sulfate [Iron] 325 mg PO TID 08/22/19 [History] Acetaminophen [Tylenol] 650 mg PO Q4H PRN tablet 08/24/19 [Rx] Docusate Sodium [Colace] 100 mg PO BID PRN cap 08/24/19 [Rx] FLUoxetine HCl [Fluoxetine HCl] 40 mg PO DAILY #30 capsule 08/24/19 [Rx] Levothyroxine 75 mcg PO ACBREAKFAST tablet 08/24/19 [Rx] Vit with Ca/FA/Iron [ Plus Iron] 1 each PO DAILY tablet [Rx] [place] Stahl [Tucks] 1 pad TOP ASDIRECTED PRN pad 08/24/19 [Rx] predniSONE 5 mg PO DAILY #7 tablet 08/24/19 [Rx] Referrals: hCema Grey MD [Primary Care Provider] - (call to make an appointment for [address] Grey) - Discharge Summary/Plan Comment DC Time >30 min.: No - Patient Data Vitals - Most Recent: Last Vital Signs Temp 97.5 F 08/24/19 04:23 Pulse 58 L 08/24/19 04:23 Resp 17 08/24/19 04:23 BP 131/82 08/24/19 04:23 Pulse Ox 96 08/24/19 04:23 Weight - Most Recent: 206 lb Med Orders - Current: Current Medications Acetaminophen (Tylenol) 650 mg PO Q4H PRN PRN Reason: mild pain or fever Last Admin: 08/23/19 04:51 Dose: 650 mg Albuterol (Proventil Hfa) 0 gm INH Q4H PRN PRN Reason: Shortness of Breath Docusate Sodium (Colace) 100 mg PO BID PRN PRN Reason: Constipation Last Admin: 08/23/19 21:20 Dose: 100 mg Fluoxetine HCl (Prozac) 40 mg PO DAILY [facility] [place] Last Admin: 08/23/19 09:06 Dose: 40 mg Levothyroxine Sodium (Levothyroxine) 75 mcg PO ACBREAKFAST [facility] [place] Last Admin: 08/24/19 05:11 Dose: 75 mcg Oxycodone/Acetaminophen (Percocet 325-5 Mg) 1 - 2 tab PO Q6H PRN PRN Reason: Pain/Fever Last Admin: 08/24/19 05:11 Dose: 2 tab Prednisone (Prednisone) 20 mg PO DAILY SPIKE Stop: 08/24/19 09:01 Last Admin: 08/23/19 14:31 Dose: 20 mg Prenat Multivit/Sp[place]/Iron/Folic Ac ( Plus Iron) 1 each PO DAILY [facility] [place] Last Admin: 08/23/19 09:06 Dose: Not Given [place] Stahl (Tucks) 1 pad TOP ASDIRECTED PRN PRN Reason: Pain Discontinued Medications Acetaminophen (Tylenol) 650 mg PO Q4H PRN PRN Reason: Headache Last Admin: 08/22/19 13:46 Dose: 650 mg Bupivacaine HCl (Sensorcaine-Mpf 0.25%) 10 ml .ROUTE .STK-MED ONE Stop: 08/22/19 00:01 Diphenhydramine HCl (Benadryl) 25 mg IVPUSH Q6H PRN PRN Reason: pruritis Ephedrine Sulfate (Ephedrine Sulfate) 5 mg IVPUSH ASDIRECTED PRN PRN Reason: Hypotension Fentanyl (Sublimaze) 100 mcg EPIDUR Q3H PRN PRN Reason: Pain Last Admin: 08/22/19 14:06 Dose: 100 mcg Fentanyl/Bupivacaine HCl (Fentanyl/Bupivacaine/Ns 2 Mcg-0.125% 250 Ml) 250 ml EPIDUR CONTINUOUS PRN PRN Reason: Pain Last Admin: 08/22/19 14:06 Dose: 250 ml Ferrous Sulfate (Ferrous Sulfate) 324 mg PO TID SPIKE Last Admin: 08/23/19 05:46 Dose: Not Given Hydrocortisone Sodium Succinate (Solu-Cortef) 100 mg IVPUSH ONETIME ONE Stop: 08/22/19 13:16 Last Admin: 08/22/19 13:55 Dose: 100 mg Hydrocortisone Sodium Succinate (Solu-Cortef) 100 mg IVPUSH DAILY@1200 SPIKE Stop: 08/24/19 12:01 Last Admin: 08/23/19 18:56 Dose: Not Given Lactated Ringer's (Ringers, Lactated) 1,000 mls @ 100 mls/hr IV ASDIRECTED SPIKE Last Admin: 08/22/19 15:27 Dose: 100 mls/hr Oxytocin/Lactated Ringer's (Pitocin In Lr 10 Units/1,000 Ml) 10 unit in 1,000 mls @ 12 mls/hr IV TITRATE SPIKE; Protocol Last Titration: 08/22/19 21:45 Dose: 10 munits/min, 60 mls/hr Sodium Chloride (Normal Saline) Confirm Administered Dose 500 mls @ as directed .ROUTE .STK-MED ONE Stop: 08/22/19 05:56 Last Admin: 08/23/19 05:46 Dose: Not Given Oxytocin/Lactated Ringer's (Pitocin In Lr 10 Units/1,000 Ml) Confirm Administered Dose 10 unit in 1,000 mls @ as directed IV .STK-MED ONE Stop: 08/22/19 20:47 Last Admin: 08/22/19 22:39 Dose: 500 mls/hr Levothyroxine Sodium (Levothyroxine) 25 mcg PO QPM SPIKE Last Admin: 08/23/19 05:46 Dose: Not Given Nalbuphine HCl (Nubain) 10 mg IVPUSH Q2H PRN PRN Reason: Pain Ondansetron HCl (Zofran) 4 mg IVPUSH Q4H PRN PRN Reason: Nausea/Vomiting Polyethylene Glycol (Miralax) 17 gm PO ONETIME ONE Stop: 08/23/19 21:20 Last Admin: 08/23/19 22:09 Dose: 17 gm Prenat Multivit/[place]/Iron/Folic Ac ( Plus Iron) 1 each PO DAILY SPIKE Sodium Chloride (Saline Flush) 10 ml FLUSH ASDIRECTED PRN PRN Reason: Keep Vein Open
[2019-08-24] MEDS: FLUoxetine 20 MG Cap PO SCH (11:13)
[2019-08-24] MEDS: predniSONE 20 MG Tab PO SCH (11:15)
[2019-08-24 16:01] VITALS: BP 99/66; PULSE 68
[2019-08-24] MEDS: Prenatal Multivitamin with Calcium/Folic Acid/Iron Tab PO SCH (16:04)
== END 2019-08-24 11:40 | disposition home or self-care (01) | DRG 560 ==
LOC: JD.OB 05:18 → OBSVTOIN 22:29
PROVIDERS: ADMIT Obstetrics & Gynecology; ATTEND Obstetrics & Gynecology
PROC: 10E0XZZ Delivery of Products of Conception, External Approach (ICD-10-PCS; principal; 2019-08-22)
PROC: 10907ZC Drainage of Amniotic Fluid, Therapeutic from Products of Conception, Via Natural or Artificial Opening (ICD-10-PCS; 2019-08-22)
PROC: 3E033VJ Introduction of Other Hormone into Peripheral Vein, Percutaneous Approach (ICD-10-PCS; 2019-08-22)
PROC: 0HQ9XZZ Repair Perineum Skin, External Approach (ICD-10-PCS; 2019-08-22)
PROC: 0UQMXZZ Repair Vulva, External Approach (ICD-10-PCS; 2019-08-22)
PROC: 3E0R3BZ Introduction of Anesthetic Agent into Spinal Canal, Percutaneous Approach (ICD-10-PCS; 2019-08-22)
DX: O99.12 Other diseases of the blood and blood-forming organs and certain disorders involving the immune mechanism complicating childbirth (principal); D69.6 Thrombocytopenia, unspecified; O34.211 Maternal care for low transverse scar from previous cesarean delivery; Z37.0 Single live birth; O99.345 Other mental disorders complicating the puerperium; F53.0 Postpartum depression; O99.284 Endocrine, nutritional and metabolic diseases complicating childbirth; E03.9 Hypothyroidism, unspecified; O70.0 First degree perineal laceration during delivery; Z91.040 Latex allergy status; Z3A.39 39 weeks gestation of pregnancy; Z91.09 Other allergy status, other than to drugs and biological substances; Z88.8 Allergy status to other drugs, medicaments and biological substances; Z79.899 Other long term (current) drug therapy
CPT/HCPCS: 36415; 51702; 59025; 80053; 82533; 85025; 85027; 86592; 86850; 86900; 86901; A9270-GY; J1720; J2590; J3010; J3490; J7120

== ENCOUNTER 2019-10-21 06:54 | Day surgery (SDC) | payer BC ==
[~2019-10-21 06:54] MED LIST changes: -Bupivacaine 0.25% 10 ML SDV ONE; +Lidocaine 1%/Sod Bicarbonate in NS 8.4% 1 ML Syringe IDERM PRN; +Sodium Chloride 0.9% 10 ML Syringe FLUSH PRN
--- NOTE | 2019-10-21 07:14 | PCM.PREANE ---
Preanesthetic Assessment - Anesthesia/Transfusion/Family Hx Anesthesia History: Prior Anesthesia Without Reaction Family History of Anesthesia Reaction: No Transfusion History: Prior Transfusion Without Reaction - Review of Systems General: No Symptoms Pulmonary: No Symptoms Cardiovascular: No Symptoms Gastrointestinal: No Symptoms Neurological: No Symptoms Other: Reports: None - Physical Assessment NPO Status Date: 10/20/19 NPO Status Time: 21:00 Height: 1.65 m Weight: 86.9 kg ASA Class: 2 Mental Status: Alert & Oriented x3 Airway Class: Mallampati = 2 Dentition: Reports: Normal Dentition Thyro-Mental Finger Breadths: 3 Mouth Opening Finger Breadths: 3 ROM/Head Extension: Full Lungs: Clear to Auscultation, Normal Respiratory Effort, Crackles - Lab Values: Laboratory Last Values WBC 7.17 K/mm3 (3.98-10.04) 10/17/19 11:54 RBC 4.63 M/mm3 (3.98-5.22) 10/17/19 11:54 Hgb 14.0 gm/dl (11.2-15.7) 10/17/19 11:54 Hct 42.1 % (34.1-44.9) 10/17/19 11:54 MCV 90.9 fl (79.4-94.8) 10/17/19 11:54 MCH 30.2 pg (25.6-32.2) 10/17/19 11:54 MCHC 33.3 g/dl (32.2-35.5) 10/17/19 11:54 RDW Std Deviation 42.6 fL (36.4-46.3) 10/17/19 11:54 Plt Count 211 K/mm3 (182-369) 10/17/19 11:54 MPV 10.8 fl (9.4-12.3) 10/17/19 11:54 Neut % (Auto) 60.4 % (34.0-71.1) 10/17/19 11:54 Lymph % (Auto) 29.0 % (19.3-51.7) 10/17/19 11:54 [place] % (Auto) 8.5 % (4.7-12.5) 10/17/19 11:54 Eos % (Auto) 1.4 (0.7-5.8) 10/17/19 11:54 Baso % (Auto) 0.4 % (0.1-1.2) 10/17/19 11:54 Neut # (Auto) 4.33 K/mm3 (1.56-6.13) 10/17/19 11:54 Lymph # (Auto) 2.08 K/mm3 (1.18-3.74) 10/17/19 11:54 [place] # (Auto) 0.61 K/mm3 (0.24-0.36) H 10/17/19 11:54 Eos # (Auto) 0.10 K/mm3 (0.04-0.36) 10/17/19 11:54 Baso # (Auto) 0.03 K/mm3 (0.01-0.08) 10/17/19 11:54 Sodium 137 mEq/L (136-145) 10/17/19 11:54 Potassium 4.2 mEq/L (3.5-5.1) 10/17/19 11:54 Chloride 102 mEq/L (98-107) 10/17/19 11:54 Carbon Dioxide 26 mEq/L (21-32) 10/17/19 11:54 Anion Gap 13.2 (5-15) 10/17/19 11:54 BUN 19 mg/dL (7-18) H 10/17/19 11:54 Creatinine 0.8 mg/dL (0.55-1.02) 10/17/19 11:54 Est Cr Clr Drug Dosing TNP 10/17/19 11:54 Estimated GFR (MDRD) > 60 mL/min (>60) 10/17/19 11:54 BUN/Creatinine Ratio 23.8 (14-18) H 10/17/19 11:54 Glucose 94 mg/dL (74-106) 10/17/19 11:54 Calcium 9.3 mg/dL (8.5-10.1) 10/17/19 11:54 Total Bilirubin 0.4 mg/dL (0.2-1.0) 10/17/19 11:54 AST 22 U/L (15-37) 10/17/19 11:54 ALT 33 U/L (14-59) 10/17/19 11:54 Alkaline Phosphatase 106 U/L (46-116) 10/17/19 11:54 Total Protein 8.0 g/dl (6.4-8.2) 10/17/19 11:54 Albumin 4.0 g/dl (3.4-5.0) 10/17/19 11:54 Globulin 4.0 gm/dL 10/17/19 11:54 Albumin/Globulin Ratio 1.0 (1-2) 10/17/19 11:54 Urine Color Yellow (Yellow) 10/17/19 11:54 Urine Appearance Clear (Clear) 10/17/19 11:54 Urine pH 6.0 (5.0-8.0) 10/17/19 11:54 Ur Specific [place] > or = 1.030 (1.005-1.030) 10/17/19 11:54 Urine Protein Negative (Negative) 10/17/19 11:54 Urine Glucose (UA) Negative (Negative) 10/17/19 11:54 Urine Ketones Negative (Negative) 10/17/19 11:54 Urine Occult Blood Negative (Negative) 10/17/19 11:54 Urine Nitrite Negative (Negative) 10/17/19 11:54 Urine Bilirubin Negative (Negative) 10/17/19 11:54 Urine Urobilinogen 0.2 (0.2-1.0) 10/17/19 11:54 Ur Leukocyte Esterase Trace (Negative) H 10/17/19 11:54 Urine RBC 0-5 /hpf (0-5) 10/17/19 11:54 Urine WBC 10-20 /hpf (0-5) H 10/17/19 11:54 Ur Squamous Epith Cells 0-5 /hpf (0-5) 10/17/19 11:54 Urine Bacteria Few /hpf (FEW) 10/17/19 11:54 Urine Mucus Few /hpf (FEW) 10/17/19 11:54 - Allergies Allergies/Adverse Reactions: Allergies Allergy/AdvReac Type Severity Reaction Status Date / Time Latex, Natural Rubber Allergy Rash Verified 10/20/19 14:14 nickel Allergy Rash Verified 10/20/19 14:14 amitriptyline AdvReac Hallucinati Verified 10/20/19 14:14 ons nortriptyline [Nortriptyline] AdvReac Hallucinati Verified 10/20/19 14:14 ons topiramate [From Topamax] AdvReac Hallucinati Verified 10/20/19 14:14 ons tape Allergy Itching Uncoded 10/20/19 14:14 - Acknowledgements Anesthesia Type Planned: General Anesthesia Pt an Appropriate Candidate for the Planned Anesthesia: Yes Alternatives and Risks of Anesthesia Discussed w Pt/Guardian: Yes Pt/Guardian Understands and Agrees with Anesthesia Plan: Yes PreAnesthesia Questionnaire HEENT History: Reports: Impaired Vision, Sinusitis Other HEENT History: Wears glasses Respiratory History: Reports: SOB Other Respiratory History: sensitivity to cold and smoke. 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: Ectopic , , Other (See Below) Other OB/BYN History: Ooprectomy Musculoskeletal History: Reports: Back Pain, Chronic, Fibromyalgia, RA (patient denies) Neurological History: Reports: Migraines Psychiatric History: Reports: Anxiety, Depression Endocrine/Metabolic History: Reports: Hypothyroidism, Obesity/BMI 30+ Hematologic History: Reports: Anemia, Idiopathic Thrombocytopenia, Iron Deficiency Other Hematologic History: received iron infusions during Immunologic History: Reports: Immunosuppression Other Immunologic History: on steroids prior to admission, autoimmune disease Oncologic (Cancer) History: Reports: None Dermatologic History: Reports: Other (See Below) Other Dermatologic History: sensitive to multiple foods "rash" - Past Surgical History Head Surgeries/Procedures: Reports: None HEENT Surgical History: Reports: Tonsillectomy Cardiovascular Surgical History: Reports: None Respiratory Surgical History: Reports: None GI Surgical History: Reports: None Female Surgical History: Reports: Section Male Surgical History: Reports: None Endocrine Surgical History: Reports: None Neurological Surgical History: Reports: None Oncologic Surgical History: Reports: None - SUBSTANCE USE Smoking Status *Q: Never Smoker Recreational Drug Use History: No - HOME MEDS Home Medications: Home Meds Albuterol Sulfate [Proair Hfa] 8.5 gm IH Q4HR PRN 10/28/16 [History] FLUoxetine HCl [Fluoxetine HCl] 40 mg PO DAILY #30 capsule 08/24/19 [Rx] Levothyroxine 75 mcg PO ACBREAKFAST tablet 08/24/19 [Rx] Cholecalciferol (Vitamin D3) [Vitamin D3] 1,000 unit PO DAILY 10/20/19 [History] - CURRENT (IN HOUSE) MEDS Current Meds: Current Medications Lactated Ringer's (Ringers, Lactated) 1,000 mls @ 125 mls/hr IV ASDIRECTED SPIKE Stop: 10/21/19 23:00 Lidocaine/Sodium Bicarbonate (Buffered Lidocaine 1% In Ns 8.4%) 0.25 ml IDERM ONETIME PRN PRN Reason: Prior to IV Start Stop: 10/21/19 18:00 Sodium Chloride (Saline Flush) 10 ml FLUSH ASDIRECTED PRN PRN Reason: Keep Vein Open Stop: 10/21/19 18:00
[2019-10-21] MEDS: Lactated Ringers 1,000 ML IV SCH ×2 (07:26→10:42)
[2019-10-21] MEDS ORDERED: fentaNYL 250 MCG/5 ML SDV ONE (07:26)
[2019-10-21] MEDS ORDERED: Midazolam 1 MG/ML 2 ML SDV ONE (07:26)
[2019-10-21] MEDS ORDERED: Propofol 200 MG/20 ML SDV ONE (07:26)
[2019-10-21] MEDS ORDERED: Rocuronium 50 MG/5 ML Vial ONE (07:26)
[2019-10-21] MEDS ORDERED: Lidocaine 1% with EPINEPHrine 1:100,000 20 ML MDV ONE (07:27)
[2019-10-21] MEDS ORDERED: Lidocaine 1% 6 ML ONE (07:27)
[2019-10-21] MEDS ORDERED: Sodium Chloride 0.9% 50 ML SDV ONE (07:28)
[2019-10-21] MEDS ORDERED: Bupivacaine 0.5% 30 ML SDV ONE (07:28)
[2019-10-21] MEDS ORDERED: ceFAZolin 1 GM Vial ONE (08:31)
[2019-10-21] MEDS ORDERED: Ondansetron 4 MG/2 ML SDV ONE (08:41)
[2019-10-21] MEDS ORDERED: Lactated Ringers 1,000 ML ONE (08:43)
[2019-10-21] MEDS ORDERED: Ondansetron 4 MG/2 ML SDV IVPUSH PRN (09:44)
[2019-10-21] MEDS ORDERED: Acetaminophen/oxyCODONE 325-5 MG Tab PO PRN (09:44)
[2019-10-21] MEDS ORDERED: Ibuprofen 600 MG Tab PO PRN ×2 (09:44→16:00)
--- NOTE | 2019-10-21 09:53 | PCM.OPNOTE ---
- General Post-Op/Procedure Note Date of Surgery/Procedure: 10/21/19 Operative Procedure(s): Laparoscopically assisted total vaginal hysterectomy with right oophorectomy and left salpingectomy Findings: Patient had grade 1-2 cystocele, grade 1-2 rectocele. Multiparous appearing cervix. Uterus is upper limits normal size. The fallopian tube was surgically absent. Left ovary was within normal limits. The right ovary had a 3 cm cyst which appeared hemorrhagic. Most probably consistent with a endometriotic cyst versus hemorrhagic corpus luteum cyst. Pre Op Diagnosis: 1. Dysmenorrhea. 2. Persistent right ovarian cyst. 3. Menorrhagia Post-Op Diagnosis: Same Anesthesia Technique: General ET Tube Other Anesthesia Type: Marcaine 0.5%15 mL. Lidocaine quarter percent with [id number] mL Primary Surgeon: Chema Grey Secondary Surgeon: Domo Galicia Anesthesia Provider: Davon Rodrigez Bobbin Cleaning Machine Operator: Ismael Mcneal (Retraction, assistance, patient safety, quality of care.) Reason Bobbin Cleaning Machine Operator Was Necessary: retraction, assistance, patient safety, quality of care. Pathology: Uterus with cervix, free and left fallopian tube all as one specimen. Fluid Replacement, Intraop: 1,000 Output, Urine Amount: 300 EBL in mLs: 200 Complications: None Condition: Good Free Text/Narrative:: Surgery duration: 44 minutes Procedure: The patient was taken to the operating room placed in supine position on the operating table. She received 2 g of Ancef preoperatively for infection prophylaxis. She had signed consent previously. After adequate anesthesia patient was placed in a dorsal lithotomy position. It should be noted she had sequential compression stockings in place for DVT prophylaxis. A uterine manipulator was placed as was an latex free indwelling bladder catheter. This was done after adequate prepping and draping. The patient was placed in supine position and 3 laparoscopic port sites were developed. Marcaine 0.5% approximately 3-5 mL was injected at each site. Verres needle was placed and pneumoperitoneum was achieved with 3.5 L of CO2. Infraumbilical and 2 lateral port sites were developed. Under laparoscopic guidance the upper portion of the hysterectomy was performed. The right infundibulopelvic ligament was elevated and crossclamped using the endoseal computerized cautery device. The round ligament was taken down to the broad ligament. At this time attention was turned to the left side and the left ovary was conserved. The left fallopian tube was removed along with the uterine specimen in routine fashion.. Broad ligament was taken down to the area of the uterine vasculature. Uterine vasculature was developed in the usual fashion using the cautery system. Both uterine arteries were identified and developed. Vaginal approach was then undertaken. The patient was placed in the dorsal lithotomy position and a weighted speculum was placed in the vagina. The cervix was injected with lidocaine quarter percent with epinephrine 20 mL total. A full circumference incision was made through the epithelium around the cervix. Posterior cul-de-sac was entered without problems. The left uterosacral ligament and then the right uterosacral were taken down using the Enseal vessel closure system. The cardinal ligament and what remained of the uterine vascular vessels and cervical branches of the vessels were managed with the Enseal vessel closure system on each side. Anterior cul-de-sac was then entered and the remaining portion of broad ligament on the right side and a small portion of broad ligament remaining on the left side were then developed in the usual fashion. Uterus was then removed. At this point the uterus was completely removed and sent as specimen. The vaginal cuff was then run with a locked running suture of 0 Monocryl from the 2 o'clock position to the 10 o'clock position. The vagina was closed with a running locked suture of 0 Monocryl. Hemostasis was confirmed this time and no bleeding was noted. Laparoscopy was then performed to ensure hemostasis. Pneumoperitoneum was reestablished and the laparoscope was placed. The pelvis was found to be hemostatically intact. There was no evidence of any bowel adhesion to the vaginal cuff area noted. The sleeves were removed under direct visualization and the upper sleeve was removed after reversal of the pneumoperitoneum. Each of these sites were closed with a single interrupted suture of 3-0 Monocryl. They were further approximated with Dermabond skin glue. At this point the patient was awakened from general endotracheal anesthesia. The Zuniga catheter had been removed by this time. She is discharged from the operating room in good condition.
[2019-10-21] MEDS ORDERED: fentaNYL 100 MCG/2 ML SDV IVPUSH PRN (09:57)
[2019-10-21] MEDS ORDERED: HYDROmorphone 0.5 MG/0.5 ML Syringe IVPUSH PRN (09:57)
--- NOTE | 2019-10-21 10:00 | PCM.POSTAN ---
POST ANESTHESIA ASSESSMENT - MENTAL STATUS Mental Status: Somnolent - VITAL SIGNS Vital Signs: Last Vital Signs Temp 99.0 F 10/21/19 09:46 Pulse 77 10/21/19 07:10 Resp 13 10/21/19 09:46 BP 133/71 10/21/19 09:46 Pulse Ox 95 10/21/19 09:55 - RESPIRATORY Respiratory Status: Respiratory Rate WNL, Airway Patent, O2 Saturation Stable, Supplemental Oxygen - CARDIOVASCULAR CV Status: Pulse Rate WNL, Blood Pressure Stable - GASTROINTESTINAL GI Status: No Symptoms - PAIN Pain Score: 0 - POST OP HYDRATION Hydration Status: Adequate & Stable
[2019-10-21] MEDS ORDERED: Ketorolac 30 MG/ML SDV IVPUSH PRN (10:05)
--- NOTE | 2019-10-21 14:13 | PCM48HPAN ---
Post Anesthesia Note - EVALUATION WITHIN 48HRS OF ANESTHETIC Vital Signs in Normal Range: Yes Patient Participated in Evaluation: Yes Respiratory Function Stable: Yes Airway Patent: Yes Cardiovascular Function Stable: Yes Hydration Status Stable: Yes Pain Control Satisfactory: Yes Nausea and Vomiting Control Satisfactory: Yes Mental Status Recovered: Yes Vital Signs: Last Vital Signs Temp 98.4 F 10/21/19 14:00 Pulse 63 10/21/19 14:00 Resp 16 10/21/19 14:00 BP 118/79 10/21/19 14:00 Pulse Ox 93 L 10/21/19 14:00
[2019-10-21 15:36] VITALS: BP 124/72; PULSE 76
== END 2019-10-21 15:15 | disposition home or self-care (01) ==
LOC: JD.SDS 06:54
PROVIDERS: ATTEND Obstetrics & Gynecology
DX: N80.0 Endometriosis of uterus (principal); N80.1 Endometriosis of ovary; N83.01 Follicular cyst of right ovary; N72 Inflammatory disease of cervix uteri; N81.10 Cystocele, unspecified; N81.6 Rectocele; N73.6 Female pelvic peritoneal adhesions (postinfective); K21.9 Gastro-esophageal reflux disease without esophagitis; J45.909 Unspecified asthma, uncomplicated; M06.9 Rheumatoid arthritis, unspecified; E03.9 Hypothyroidism, unspecified; F32.9 Major depressive disorder, single episode, unspecified; F41.9 Anxiety disorder, unspecified; E66.9 Obesity, unspecified; Z68.32 Body mass index [BMI] 32.0-32.9, adult; Z91.048 Other nonmedicinal substance allergy status; Z91.040 Latex allergy status; Z88.8 Allergy status to other drugs, medicaments and biological substances; Z79.51 Long term (current) use of inhaled steroids; Z79.899 Other long term (current) drug therapy; Z90.79 Acquired absence of other genital organ(s)
CPT/HCPCS: 36415; 58552; 80053; 81001; 84703; 85025; 86850; 86900; 86901; A9270; J0690; J1885; J2001; J2250; J2405; J2704; J3010; J3490; J7120; 00944